=== PATIENT | male | born 1980 | race Asian ===

== ENCOUNTER 2020-06-10 14:27 | Emergency (ER) | payer OTHER ==
[~2020-06-10] VITALS: Ht 167.6 cm; Wt 137.7 kg
[2020-06-10 14:32] VITALS: BP 145/86
[2020-06-10] MEDS ORDERED: ATOR20TA86 PO (14:35)
[2020-06-10] MEDS ORDERED: LEVO75 PO (14:35)
== END 2020-06-10 15:50 | disposition home or self-care (01) ==
LOC: EMS 14:27
DX: R51.9 Headache, unspecified (principal); E78.00 Pure hypercholesterolemia, unspecified; F17.210 Nicotine dependence, cigarettes, uncomplicated; Z91.013 Allergy to seafood; V49.9XXA Car occupant (driver) (passenger) injured in unspecified traffic accident, initial encounter; Y93.89 Activity, other specified; Y92.89 Other specified places as the place of occurrence of the external cause; Y99.8 Other external cause status